=== PATIENT | female | born 1945 | race Caucasian/White ===

== ENCOUNTER 2019-06-06 09:41 | Outpatient (CLI) | payer OTHER, SELFPAY ==
--- NOTE | ~2019-06-06 | XR_ITS ---
EXAMINATION: XR lumbar spine 2-3V DATE: 06/06/2019 11:17 INDICATION: Dorsalis TECHNIQUE: Anteroposterior and lateral views of the lumbar spine, and cone-down lateral view of the l umbosacral junction were obtained. COMPARISON: 03/10/2008 FINDINGS: There are 3 mm of retrolisthesis of L3 on L4. Vertebral body alignment is otherwise normal. There is mild loss of intervertebral disc space height at L3-4. The vertebral body heights are maint ained. Small degenerative osteophytes project from the anterior endplates of multiple vertebral rachna s. There is moderate lower lumbar facet osteoarthritis. Lumbar dextroscoliosis is noted. The bowel ga s pattern is normal. A moderate volume of colonic stool is present. IMPRESSION: 1. Mild to moderate lumbar spondylosis without acute findings. Reviewed, dictated and finalized at location A. [employer]
--- NOTE | ~2019-06-06 | XR_ITS ---
EXAMINATION: XR thoracic spine 3V DATE: 06/06/2019 11:17 INDICATION: Dorsalis unspecified TECHNIQUE: AP, lateral and lateral swimmer's views of the thoracic spine were obtained. COMPARISON: 08/09/2010 FINDINGS: There are bridging osteophytes in the midthoracic spine, consistent with diffuse idiopathic skeletal hyperostosis (DISH). The vertebral body heights are normal. There is no fracture. Mild loss of intervertebral disc space height is seen throughout the thoracic spine. There is mild thoracolumb ar levocurvature. IMPRESSION: 1. Moderate thoracic spondylosis without acute findings or significant interval change. Reviewed, dictated and finalized at location A. E HOP
[2019-06-06 10:32] LABS: Basophils Percent Auto 0.5 % (0.2-1.2); Eosinophils Absolute Auto 0.1 K/mm3 (0-0.3); Eosinophils Percent Auto 1.9 % (0-4.4); Hematocrit 38.2 % (37.0-47.0); Hemoglobin 11.9 g/dL (12.0-15.0); Immature Granulocyte Absolute 0.02 K/mm3 (0.00-0.031); Immature Granulocyte Percent A 0.3 % (0-0.5); Lymphocytes Absolute Auto 1.11 K/mm3 (0.9-3.2); Lymphocytes Percent Auto 17.3 % (18.3-44.2); Mean Corpuscular HGB Conc 31.2 g/dl (32-36); Mean Corpuscular Volume 92.9 fl (80-100); Mean Platelet Volume 10.6 fl (7.4-10.4); Monocytes Absolute Auto 0.6 K/mm3 (0.1-0.6); Monocytes Percent Auto 8.7 % (2.6-8.5); Neutrophils Absolute Auto 4.6 K/mm3 (1.3-6.7); Neutrophils Percent Auto 71.3 % (45.5-73.1); Nucleated Red Blood Cells Perc 0.3 % (0.0-0.2); Platelet Count Result 254 k/mm3 (150-375); Red Blood Count 4.11 M/mm3 (4.2-5.4); Red Cell Distribution Width 13.6 % (11.5-14.5); White Blood Count 6.4 K/mm3 (4.5-10.0)
[2019-06-06 10:59] LABS: Alanine Aminotransferase 22 U/L (4-35); Albumin Level 4.4 g/dL (3.5-5.1); Alkaline Phosphatase 101 U/L (38-126); Aspartate Amino Transferase 48 U/L (14-36); Bilirubin,Total 0.6 mg/dL (0.2-1.3); Blood Urea Nitrogen 26 mg/dL (7-17); Calcium 10.1 mg/dL (8.4-10.2); Carbon Dioxide 25 mmol/L (22-30); Chloride 101 mmol/L (98-107); Cholesterol 154 mg/dL (0-200); Estimated Glomerular Filt Rate > 60; Glucose 103 mg/dL (65-105); HDL Direct 35 mg/dL; Potassium 4.1 mmol/L (3.4-5.0); Sodium 139 mmol/L (137-145); Triglycerides 79 mg/dL (<150)
[2019-06-06 11:10] LABS: LDL Cholesterol Direct 94 mg/dL
[2019-06-06 11:22] LABS: Creatinine Urine 110.1 mg/dL
[2019-06-06 11:27] LABS: MALB Creatinine Ratio 8.9 mg/g (0-30); Microalbumin Urine Random 9.8 mg/L (0-16.7)
[2019-06-06 13:18] LABS: Erythrocyte Sedimentation Rate 56 mm/hr (0-20)
[2019-06-06 16:06] LABS: Vitamin D 25 Hydroxy 32.8 ng/mL
[2019-06-09 20:40] LABS: CRP, High Sensitivity 1.3 mg/L (***)
[2019-06-10 21:14] LABS: Anti Cyclic Citrullinated Pept <16 Units (<20)
== END 2019-06-06 09:42 | disposition home or self-care (01) ==
PROVIDERS: PCP Internal Medicine; Visit Provider Internal Medicine
DX: M54.9 Dorsalgia, unspecified (principal); D89.0 Polyclonal hypergammaglobulinemia; Z79.899 Other long term (current) drug therapy; I10 Essential (primary) hypertension; E78.5 Hyperlipidemia, unspecified; E11.9 Type 2 diabetes mellitus without complications
CPT/HCPCS: 36415; 72072; 72100; 80053; 80061; 82043; 82306; 83036; 85025; 85652; 86038; 86141; 86200

== ENCOUNTER 2019-07-10 11:08 | Outpatient (CLI) | payer OTHER, SELFPAY ==
[2019-07-10 11:29] LABS: Basophils Percent Auto 0.4 % (0.2-1.2); Eosinophils Absolute Auto 0.1 K/mm3 (0-0.3); Eosinophils Percent Auto 2.1 % (0-4.4); Hematocrit 36.8 % (37.0-47.0); Hemoglobin 11.6 g/dL (12.0-15.0); Immature Granulocyte Absolute 0.02 K/mm3 (0.00-0.031); Immature Granulocyte Percent A 0.3 % (0-0.5); Lymphocytes Absolute Auto 1.27 K/mm3 (0.9-3.2); Mean Corpuscular HGB Conc 31.5 g/dl (32-36); Mean Corpuscular Hemoglobin 29.5 pg (26-34); Mean Corpuscular Volume 93.6 fl (80-100); Monocytes Absolute Auto 0.6 K/mm3 (0.1-0.6); Monocytes Percent Auto 8.4 % (2.6-8.5); Neutrophils Absolute Auto 4.7 K/mm3 (1.3-6.7); Neutrophils Percent Auto 69.8 % (45.5-73.1); Platelet Count Result 300 k/mm3 (150-375); Red Blood Count 3.93 M/mm3 (4.2-5.4); Red Cell Distribution Width 13.5 % (11.5-14.5); White Blood Count 6.7 K/mm3 (4.5-10.0)
[2019-07-10 17:09] LABS: Alanine Aminotransferase 18 U/L (4-35); Albumin Level 4.1 g/dL (3.5-5.1); Alkaline Phosphatase 103 U/L (38-126); Aspartate Amino Transferase 40 U/L (14-36); Bilirubin,Total 0.4 mg/dL (0.2-1.3); Blood Urea Nitrogen 25 mg/dL (7-17); Calcium 10.1 mg/dL (8.4-10.2); Carbon Dioxide 29 mmol/L (22-30); Chloride 105 mmol/L (98-107); Estimated Glomerular Filt Rate 48; Glucose 129 mg/dL (65-105); Potassium 3.9 mmol/L (3.4-5.0); Sodium 141 mmol/L (137-145)
[2019-07-10 17:23] LABS: Immunoglobulin A 312 mg/dL (70-400); Immunoglobulin G 2433 mg/dL (700-1600)
[2019-07-10 17:35] LABS: Immunoglobulin M < 25 mg/dL (40-230)
[2019-07-14 03:38] LABS: Albumin 3.7 g/dL (3.8-4.8); Alpha 1 Globulin 0.3 g/dL (0.2-0.3); Alpha 2 Globulin 0.8 g/dL (0.5-0.9); Beta 1 Globulin 0.5 g/dL (0.4-0.6); Gamma Globulin 2.2 g/dL (0.8-1.7)
[2019-07-16 00:45] LABS: Beta-2-Microglobulin 3.42 mg/L (<=2.51)
[2019-07-16 14:19] LABS: Kappa\\Lambda Light Chains 2.91 (0.26-1.65); Lambda Light Chain 21.2 mg/L (5.7-26.3)
== END 2019-07-10 11:09 | disposition home or self-care (01) ==
LOC: ANHLAB 11:13
PROVIDERS: PCP Internal Medicine; Visit Provider Internal Medicine Hematology & Oncology
DX: D72.9 Disorder of white blood cells, unspecified (principal)
CPT/HCPCS: 36415; 80053; 82232; 82784; 83883; 84155; 84165; 85025; 86334

== ENCOUNTER 2019-07-10 11:59 | Outpatient (CLI) | payer OTHER, SELFPAY ==
--- NOTE | ~2019-07-10 | XR_ITS ---
EXAMINATION: BONE SURVEY/METASTATIC SURVEY DATE: 07/10/2019 INDICATION: Plasma cell disorder TECHNIQUE: A skeletal survey was performed including AP views of the chest, abdomen and pelvis; AP an d lateral/lateral swimmers views of the cervical, thoracic and lumbar spine; lateral view of the skul l, and AP and lateral views of the appendicular skeleton excluding the hands and feet. COMPARISON: Thoracic and lumbar spine radiographs dated 06/06/2019 FINDINGS: Small lucencies within sclerotic margins with typical location and appearance for degenerative cystic change at the greater tuberosity of the left humerus. No other suspicious lytic lesions in the axial or appendicular skeleton. There are bridging osteophytes at multiple levels in the spine as well as small enthesophytes at multiple sites of tenderness insertions in the appendicular skeleton, consiste nt with diffuse idiopathic skeletal hyperostosis (DISH). Moderate to severe multilevel bilateral cerv ical facet osteoarthritis. Mild thoracic kyphosis with mild spondylosis. Mild lumbar dextrocurvature with moderate spondylosis. Osteoarthritis at the bilateral hips, mild on the left and moderate on the right. Mild osteoarthritis at the medial compartment of both knees, left greater than right. Lungs a re clear with no focal airspace opacities, pleural effusion or pneumothorax. Cardiomediastinal silhou ette is normal. Normal bowel gas pattern. Atherosclerotic calcifications and phleboliths in the pelvi s. IMPRESSION: 1. Scattered degenerative skeletal changes detailed above. No suspicious lytic bone lesions identifie d. Reviewed, dictated and finalized at location A. [employer] IMPRESSION: 1. Scattered degenerative skeletal changes detailed above. No suspicious lytic bone lesions identified.
== END 2019-07-10 12:00 | disposition home or self-care (01) ==
LOC: ANHIMG 12:03
PROVIDERS: PCP Internal Medicine; Visit Provider Internal Medicine Hematology & Oncology
DX: D72.9 Disorder of white blood cells, unspecified (principal); M89.9 Disorder of bone, unspecified
CPT/HCPCS: 77074

== ENCOUNTER 2019-11-26 09:08 | Outpatient (CLI) | payer OTHER, SELFPAY ==
[2019-11-26 09:49] LABS: Basophils Percent Auto 0.4 % (0.2-1.2); Eosinophils Absolute Auto 0.1 K/mm3 (0-0.3); Eosinophils Percent Auto 1.6 % (0-4.4); Hematocrit 37.3 % (37.0-47.0); Hemoglobin 12.4 g/dL (12.0-15.0); Immature Granulocyte Absolute 0.03 K/mm3 (0.00-0.031); Immature Granulocyte Percent A 0.4 % (0-0.5); Lymphocytes Absolute Auto 1.04 K/mm3 (0.9-3.2); Lymphocytes Percent Auto 15.6 % (18.3-44.2); Mean Corpuscular HGB Conc 33.2 g/dl (32-36); Mean Corpuscular Hemoglobin 29.2 pg (26-34); Mean Corpuscular Volume 87.8 fl (80-100); Mean Platelet Volume 10.2 fl (7.4-10.4); Monocytes Absolute Auto 0.6 K/mm3 (0.1-0.6); Monocytes Percent Auto 9.3 % (2.6-8.5); Neutrophils Absolute Auto 4.9 K/mm3 (1.3-6.7); Neutrophils Percent Auto 72.7 % (45.5-73.1); Platelet Count Result 228 k/mm3 (150-375); Red Blood Count 4.25 M/mm3 (4.2-5.4); Red Cell Distribution Width 13.4 % (11.5-14.5); White Blood Count 6.7 K/mm3 (4.5-10.0)
[2019-11-26 10:05] LABS: Creatinine Urine 63.7 mg/dL
[2019-11-26 10:06] LABS: Hemoglobin A1C 5.8 % (<5.7)
[2019-11-26 10:08] LABS: Alanine Aminotransferase 17 U/L (4-35); Albumin Level 4.2 g/dL (3.5-5.1); Alkaline Phosphatase 90 U/L (38-126); Aspartate Amino Transferase 40 U/L (14-36); Bilirubin,Total 0.5 mg/dL (0.2-1.3); Blood Urea Nitrogen 27 mg/dL (7-17); Carbon Dioxide 22 mmol/L (22-30); Chloride 106 mmol/L (98-107); Estimated Glomerular Filt Rate > 60; Glucose 102 mg/dL (65-105); Potassium 4.4 mmol/L (3.4-5.0); Sodium 137 mmol/L (137-145)
[2019-11-26 10:40] LABS: MALB Creatinine Ratio < 9.4 mg/g (0-30); Microalbumin Urine Random < 6.0 mg/L (0-16.7)
== END 2019-11-26 09:09 | disposition home or self-care (01) ==
LOC: ANHLAB 09:09
PROVIDERS: PCP Internal Medicine; Visit Provider Internal Medicine
DX: R73.01 Impaired fasting glucose (principal)
CPT/HCPCS: 36415; 80053; 82043; 83036; 85025

== ENCOUNTER 2020-02-23 14:02 | Outpatient (CLI) | payer OTHER, SELFPAY ==
[2020-02-23 14:23] LABS: Basophils Percent Auto 0.5 % (0.2-1.2); Eosinophils Absolute Auto 0.1 K/mm3 (0-0.3); Eosinophils Percent Auto 1.7 % (0-4.4); Hematocrit 39.5 % (37.0-47.0); Hemoglobin 12.8 g/dL (12.0-15.0); Immature Granulocyte Absolute 0.03 K/mm3 (0.00-0.031); Immature Granulocyte Percent A 0.4 % (0-0.5); Mean Corpuscular HGB Conc 32.4 g/dl (32-36); Mean Corpuscular Hemoglobin 29.3 pg (26-34); Mean Corpuscular Volume 90.4 fl (80-100); Mean Platelet Volume 10.2 fl (7.4-10.4); Monocytes Absolute Auto 0.8 K/mm3 (0.1-0.6); Neutrophils Absolute Auto 5.3 K/mm3 (1.3-6.7); Neutrophils Percent Auto 71.4 % (45.5-73.1); Platelet Count Result 248 k/mm3 (150-375); Red Blood Count 4.37 M/mm3 (4.2-5.4); Red Cell Distribution Width 13.7 % (11.5-14.5); White Blood Count 7.5 K/mm3 (4.5-10.0)
[2020-02-23 16:46] LABS: Alanine Aminotransferase 21 U/L (4-35); Albumin Level 4.5 g/dL (3.5-5.1); Alkaline Phosphatase 112 U/L (38-126); Anion Gap 10 mmol/L (8-16); Aspartate Amino Transferase 42 U/L (14-36); Bilirubin,Total 0.4 mg/dL (0.2-1.3); Blood Urea Nitrogen 18 mg/dL (7-17); Calcium 10.1 mg/dL (8.4-10.2); Carbon Dioxide 24 mmol/L (22-30); Chloride 106 mmol/L (98-107); Estimated Glomerular Filt Rate > 60; Glucose 122 mg/dL (65-105); Potassium 4.1 mmol/L (3.4-5.0); Sodium 140 mmol/L (137-145)
[2020-02-23 16:53] LABS: Immunoglobulin A 337 mg/dL (70-400); Immunoglobulin G 2679 mg/dL (700-1600)
[2020-02-23 17:45] LABS: Immunoglobulin M < 25 mg/dL (40-230)
[2020-02-25 20:10] LABS: Kappa\\Lambda Light Chains 3.16 (0.26-1.65); Lambda Light Chain 24.3 mg/L (5.7-26.3)
[2020-02-26 22:45] LABS: Albumin 3.8 g/dL (3.8-4.8); Alpha 1 Globulin 0.3 g/dL (0.2-0.3); Alpha 2 Globulin 0.9 g/dL (0.5-0.9); Beta 1 Globulin 0.5 g/dL (0.4-0.6); Gamma Globulin 2.3 g/dL (0.8-1.7); Protein, Total 8.1 g/dL (6.1-8.1)
== END 2020-02-23 14:03 | disposition home or self-care (01) ==
PROVIDERS: PCP Internal Medicine; Visit Provider Internal Medicine Hematology & Oncology
DX: D72.9 Disorder of white blood cells, unspecified (principal)
CPT/HCPCS: 36415; 80053; 82784; 83883; 84155; 84165; 85025; 86334

== ENCOUNTER 2020-07-22 08:17 | Outpatient (CLI) | payer OTHER, SELFPAY ==
--- NOTE | ~2020-07-22 | CT_ITS ---
EXAMINATION: CT diagnostic chest wo con EXAM DATE: 07/22/2020 08:52 INDICATION: R91.1 - Solitary pulmonary nodule . Plasma cell disorder. TECHNIQUE: Spiral CT of the chest without contrast. Axial, coronal and sagittal images were reviewe d. Coronal maximum intensity pixel images of chest reviewed. The dose-length product (DLP) for this examination was 147.39 mGy-cm. The exposure was tailored according to patient size (auto mA exposur e control), and iterative reconstruction (ASIR) was used as additional dose reduction technique. The re is no prior study for comparison. FINDINGS: Small amount of dependent groundglass opacity likely atelectasis. The lungs are otherwise c lear. There is mild emphysema. Multinodular goiter. There are no pleural or pericardial effusions. Tracheobronchial tree is patent. There is no mediastinal, hilar or axillary lymphadenopathy. T here is no pneumothorax. Heart normal in size. There is mild coronary arterial calcification, art erial sclerosis. Dense layering material within the gallbladder, could be small stones or sludge. T here is thoracic spondylosis without osteoblastic or osteolytic lesions identified. IMPRESSION: 1. Subsegmental dependent atelectasis. 2. Mild emphysema. 3. Multinodular goiter. Reviewed, dictated and finalized at location A.
== END 2020-07-22 08:18 | disposition home or self-care (01) ==
PROVIDERS: PCP Internal Medicine; Visit Provider Internal Medicine
DX: R91.1 Solitary pulmonary nodule (principal); J98.11 Atelectasis; J43.9 Emphysema, unspecified; E04.9 Nontoxic goiter, unspecified
CPT/HCPCS: 71250

== ENCOUNTER 2021-01-25 11:27 | Emergency (ER) | payer OTHER, SELFPAY ==
--- NOTE | ~2021-01-25 | CT_ITS ---
EXAMINATION: CT brain wo con DATE: 01/25/2021 13:04 INDICATION: Left-sided headache. Head injury. TECHNIQUE: Computed tomography (CT) of the head was performed without intravenous contrast. The mA wa s adjusted according to patient size. Iterative reconstruction technique was employed. The dose-lengt h product was 605.33 mGy-cm. COMPARISON: Head CT 05/18/2009 FINDINGS: There are scattered areas of low attenuation in the cerebral white matter. There is no intr acranial hemorrhage, acute infarction, or abnormal intracranial mass lesion. The ventricles are yoselin l in size. There is mild mucosal thickening in the paranasal sinuses. There are likely changes of ocu lar lens replacement surgeries. There is left periorbital soft tissue swelling. There is a hematoma i n the left supraorbital region. The mastoid air cells are normal. IMPRESSION: 1. Mild nonspecific cerebral white matter disease, which likely represents chronic small vessel ische jalil disease. Reviewed, dictated and finalized at location A. IMPRESSION: 1. Mild nonspecific cerebral white matter disease, which likely represents online merchant kimberly small vessel ischemic disease.
--- NOTE | ~2021-01-25 | XR_ITS ---
XR hip LT 2V w AP pelvis 01/25/2021 13:11 INDICATION: Left hip pain after fall PROCEDURE: AP pelvis and 2 views left hip COMPARISON: No prior studies for comparison. FINDINGS: Fracture, dislocation or subluxation is not identified. There are mild degenerative changes of the hips. The soft tissues appear within normal limits. No foreign bodies are identified. IMPRESSION: 1: NO ACUTE BONE OR JOINT ABNORMALITY IDENTIFIED. Reviewed, dictated and finalized at location A.
[2021-01-25 11:47] VITALS: BP 140/61; PULSE 74; RESP 16; TEMP 36.2; O2SAT 99
[2021-01-25 12:33] VITALS: BP 139/75; PULSE 64; RESP 16; TEMP 36.8; O2SAT 99
--- NOTE | 2021-01-25 12:50 | ED.FALL ---
HPI - Fall General Chief Complaint: Fall Stated Complaint: fall, Time Seen by Provider: 01/25/21 12:33 History of Present Illness HPI Narrative: Patient presents after ground-level fall. 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 She denies any loss of consciousness reports mild pain around her eye denies any blurred vision change in vision or pain with looking around. She reports mild pain to her left hip but is unable to ambulate without difficulty. She denies any focal numbness or weakness. She denies any use of thinners. She denies any prodrome prior to the event such as chest pain, shortness of breath, dizziness Related Data Home Medications Medication Instructions Recorded Confirmed aspirin 81 mg tablet,delayed 81 mg PO DAILY 03/31/19 08/16/20 release cholecalciferol (vitamin D3) 25 1,000 unit PO DAILY 03/31/19 08/16/20 mcg (1,000 unit) capsule niacin 500 mg tablet,extended 500 mg PO QAM 04/20/20 08/16/20 release Allergies Allergy/AdvReac Type Severity Reaction Status Date / Time No Known Allergies Allergy Mild Verified 01/25/21 12:34 Review of Systems Review of Systems: CONSTITUTIONAL: Denies fever, chills, or sweats. EYES: Denies visual changes, redness, or discharge. ENT: Denies rhinorrhea, congestion, sore throat, or otalgia. CARDIOVASCULAR: Denies chest pain, palpitations, or edema. RESPIRATORY: Denies cough or dyspnea. GASTROINTESTINAL: Denies abdominal pain, nausea, vomiting, or diarrhea. GENITOURINARY: Denies dysuria or hematuria. SKIN: Denies rash or itching. MUSCULOSKELETAL: Denies back pain, joint pain, or myalgia. NEUROLOGIC: Denies headache, numbness, dizziness, or weakness. PSYCHIATRIC: Denies anxiety or depression. All systems reviewed & are unremarkable except as noted in HPI and below PMFSH Social History Social History Smoking status: Former smoker Second hand tobacco smoke exposure: No Smoking end date: 05/07/78 Alcohol intake: never Exam Narrative: GENERAL: Well-appearing, well-nourished, and in no acute distress. HEAD: Normocephalic, hematoma noted around the left orbit small superficial abrasion. EYES: PERRLA and EOMI, conjunctive are clear bilaterally anterior chamber without hypopyon ENT: Nares clear, no rhinorrhea or epistaxis. Mucous membranes moist. NECK: Supple. No masses. No JVD EXTREMITIES: Normal range of motion. No edema. SKIN: Warm, dry, no rash. NEURO: Cranial nerves II through XII are intact patient has 5 out of 5 strength in all extremities with sensation intact to light touch. Patient is ambulatory without difficulty alert and oriented x3. PSYCH: Normal mood and affect. Course Reevaluation(s) Reevaluation #1: Patient is resting comfortably continues to be without vision changes imaging reviewed with patient. Patient comfortable outpatient plan. Date: 01/25/21 Time: 13:31 Vital Signs Vital signs: Vital Signs Temperature 36.2 C L 01/25/21 11:47 Pulse Rate 74 01/25/21 11:47 Respiratory Rate 16 01/25/21 11:47 Blood Pressure 140/61 01/25/21 11:47 Pulse Oximetry 99 01/25/21 11:47 Temperature 36.8 C 01/25/21 12:33 Pulse Rate 75 01/25/21 14:02 Respiratory Rate 15 01/25/21 14:02 Blood Pressure 157/107 H 01/25/21 14:02 Pulse Oximetry 98 01/25/21 14:02 MDM - Fall MDM Narrative Medical decision making narrative: H&P as above, vss, pt looks clinically well, exam hematoma on the left orbit no focal neurological deficits, imaging clinically unremarkable, additional labs/img considered, symptomatic relief available as needed, on reevaluation pt continues to looks clinically well. Suspect mechanical event with soft tissue injury, dns intracranial hemorrhage, fracture, neurovascular compromise. plan to tx/monitor as op w/ pcm f/u findings/plan discussed with pt, pt agree/comfort
[2021-01-25 14:02] VITALS: BP 157/107; PULSE 75; RESP 15; O2SAT 98
== END 2021-01-25 13:55 | disposition home or self-care (01) ==
PROVIDERS: Emergency Provider Emergency Medicine; PCP Internal Medicine
DX: S09.90XA Unspecified injury of head, initial encounter (principal); W01.0XXA Fall on same level from slipping, tripping and stumbling without subsequent striking against object, initial encounter; Z87.891 Personal history of nicotine dependence
CPT/HCPCS: 70450; 73502; 99284

== ENCOUNTER 2021-02-14 09:55 | Outpatient (CLI) | payer OTHER, SELFPAY ==
[2021-02-14 12:17] LABS: Alanine Aminotransferase 26 U/L (4-35); Albumin Level 4.4 g/dL (3.5-5.1); Alkaline Phosphatase 86 U/L (38-126); Anion Gap 6 mmol/L (8-16); Aspartate Amino Transferase 63 U/L (14-36); Bilirubin,Total 0.7 mg/dL (0.2-1.3); Blood Urea Nitrogen 17 mg/dL (7-17); Calcium 10.4 mg/dL (8.4-10.2); Carbon Dioxide 26 mmol/L (22-30); Chloride 106 mmol/L (98-107); Estimated Glomerular Filt Rate > 60; Glucose 105 mg/dL (65-110); Potassium 4.3 mmol/L (3.4-5.0); Sodium 138 mmol/L (137-145)
[2021-02-17 02:33] LABS: Kappa\\Lambda Light Chains 3.27 (0.26-1.65); Lambda Light Chain 19.3 mg/L (5.7-26.3)
[2021-02-17 06:16] LABS: Alpha 1 Globulin 0.3 g/dL (0.2-0.3); Alpha 2 Globulin 0.9 g/dL (0.5-0.9); Beta 1 Globulin 0.5 g/dL (0.4-0.6); Gamma Globulin 2.1 g/dL (0.8-1.7); Protein, Total 8.1 g/dL (6.1-8.1)
== END 2021-02-14 09:56 | disposition home or self-care (01) ==
LOC: ANHLAB 09:58
PROVIDERS: PCP Internal Medicine; Visit Provider Internal Medicine Hematology & Oncology
DX: D72.9 Disorder of white blood cells, unspecified (principal)
CPT/HCPCS: 36415; 80053; 83883; 84155; 84165

== ENCOUNTER 2021-09-06 09:54 | Outpatient (CLI) | payer OTHER, SELFPAY ==
[2021-09-06 10:05] LABS: Basophils Absolute Auto 0.1 K/mm3 (0.0-0.1); Basophils Percent Auto 0.7 % (0.2-1.2); Hematocrit 43.3 % (37.0-47.0); Hemoglobin 13.6 g/dL (12.0-15.0); Immature Granulocyte Absolute 0.02 K/mm3 (0.00-0.031); Immature Granulocyte Percent A 0.3 % (0-0.5); Lymphocytes Absolute Auto 1.24 K/mm3 (0.9-3.2); Lymphocytes Percent Auto 17.6 % (18.3-44.2); Mean Corpuscular HGB Conc 31.4 g/dl (32-36); Mean Corpuscular Hemoglobin 29.5 pg (26-34); Mean Corpuscular Volume 93.9 fl (80-100); Monocytes Absolute Auto 0.6 K/mm3 (0.1-0.6); Monocytes Percent Auto 8.7 % (2.6-8.5); Neutrophils Absolute Auto 5.1 K/mm3 (1.3-6.7); Neutrophils Percent Auto 72.7 % (45.5-73.1); Platelet Count Result 281 k/mm3 (150-375); Red Blood Count 4.61 M/mm3 (4.2-5.4); Red Cell Distribution Width 13.4 % (11.5-14.5)
[2021-09-06 10:09] LABS: Blood Urea Nitrogen 24 mg/dL (8-26); Carbon Dioxide 25 mmol/L (22-30); Chloride 103 mmol/L (98-109); Estimated Glomerular Filt Rate 54; Glucose 100 mg/dL (70-105); Potassium 4.1 mmol/L (3.5-4.9); Sodium 141 mmol/L (138-146)
[2021-09-06 12:44] LABS: Alanine Aminotransferase 15 U/L (4-35); Albumin Level 4.6 g/dL (3.5-5.1); Alkaline Phosphatase 95 U/L (38-126); Anion Gap 11 mmol/L (8-16); Aspartate Amino Transferase 33 U/L (14-36); Bilirubin,Total 0.7 mg/dL (0.2-1.3); Blood Urea Nitrogen 24 mg/dL (7-17); Calcium 9.7 mg/dL (8.4-10.2); Carbon Dioxide 22 mmol/L (22-30); Chloride 104 mmol/L (98-107); Estimated Glomerular Filt Rate 54; Glucose 104 mg/dL (65-110); Sodium 137 mmol/L (137-145)
== END 2021-09-06 09:55 | disposition home or self-care (01) ==
LOC: ANHLAB 09:54
PROVIDERS: PCP Internal Medicine; Visit Provider Internal Medicine Hematology & Oncology
DX: D72.9 Disorder of white blood cells, unspecified (principal)
CPT/HCPCS: 36415; 80047; 80053; 85025

== ENCOUNTER 2022-12-02 09:23 | Emergency (ER) | payer OTHER, SELFPAY ==
[2022-12-02 09:36] VITALS: BP 148/101; PULSE 77; RESP 16; TEMP 37.4; O2SAT 98
--- NOTE | 2022-12-02 09:56 | ED.GENADULT ---
HPI - General Adult General Chief complaint: Urogenital-Female Stated complaint: vaginal issue Source: patient Mode of arrival: ambulatory Limitations: no limitations History of Present Illness HPI narrative: Patient presents for evaluation of vaginal bleeding. Symptom onset yesterday. She wears underwear with incontinence pads due to some urinary dribbling. She noted some blood on her pad yesterday. She states she noted blood again on her pad this morning. She denies any urinary symptoms, low back pain, abdominal pain, fever, chills, dizziness. She takes 81mg ASA daily but states she is not anticoagulated. She is not sexually active. No hx of HPV to her knowledge. Denies any change in bowel pattern. Related Data Allergies Allergy/AdvReac Type Severity Reaction Status Date / Time No Known Allergies Allergy Mild Verified 12/02/22 09:35 Review of Systems Review of Systems: CONSTITUTIONAL: Denies fever, chills, or sweats. EYES: Denies visual changes, redness, or discharge. ENT: Denies rhinorrhea, congestion, sore throat, or otalgia. CARDIOVASCULAR: Denies chest pain, palpitations, or edema. RESPIRATORY: Denies cough or dyspnea. GASTROINTESTINAL: Denies abdominal pain, nausea, vomiting, or diarrhea. GENITOURINARY: Reports vaginal bleeding. Denies dysuria or hematuria. SKIN: Denies rash or itching. MUSCULOSKELETAL: Denies back pain, joint pain, or myalgia. NEUROLOGIC: Denies headache, numbness, dizziness, or weakness. PSYCHIATRIC: Denies anxiety or depression. [facility] Past Medical History Medical History Age-related nuclear cataract COVID DISH (diffuse idiopathic skeletal hyperostosis) DM w/o complication type II Essential (primary) hypertension Hyperlipidemia, unspecified Hypovitaminosis D IFG (impaired fasting glucose) Lung nodule Mild emphysema Osteoarthritis of hip, unspecified Surgical History Surgical History Hx of appendectomy Family History Family History Mother Family history non-contributory Social History Social History Smoking status: Former smoker Second hand tobacco smoke exposure: No Smoking end date: 05/07/78 Alcohol intake: never Substance use: never Substance use type: does not use Exam Narrative: GENERAL: Well-appearing, well-nourished, and in no acute distress. HEAD: Normocephalic, atraumatic. EYES: PERRLA and EOMI. ENT: Nares clear, no rhinorrhea or epistaxis. Mucous membranes moist. Oropharynx without tonsillar hypertrophy exudate or other lesions. Bilateral TMs pearly vinson nonbulging NECK: Supple. No adenopathy or masses. No carotid bruits or JVD CHEST: Clear to auscultation. No respiratory distress. No wheezes rales or rhonchi HEART: Regular rate and rhythm. No murmur heard. Normal peripheral pulses. ABDOMEN: Soft, nontender, nondistended, normal active bowel sounds. EXTREMITIES: Normal range of motion. No edema. GENITAL: There is a small amount of bleeding noted at vaginal orifice. Uterus is prolapsed into vaginal vault SKIN: Warm, dry, no rash. NEURO: No focal deficits. Alert and oriented x3. PSYCH: Normal mood and affect. Course Course Emergency Course: This is a 77-year-old female who presented for evaluation of vaginal bleeding. On physical exam, she has evidence of prolapsed uterus. I contacted on-call OBGYN, Dr Heller. She indicates she will see pt in office and pt should call Sunday for an appointment. She also submitted script for vaginal estrogen. Pt should go to ER for abdominal pain, worsening bleeding or inability to urinate. Pt in agreement with plan of care. Level of Care: Express Care Visit Vital Signs Vital signs: Vital Signs Temperature 37.4 C 12/02/22 09:36 Pulse Rate 77 07/2
== END 2022-12-02 10:36 | disposition home or self-care (01) ==
PROVIDERS: Emergency Provider Nurse Practitioner; PCP Internal Medicine
DX: N81.4 Uterovaginal prolapse, unspecified (principal); Z87.891 Personal history of nicotine dependence; E11.9 Type 2 diabetes mellitus without complications; I10 Essential (primary) hypertension; E78.5 Hyperlipidemia, unspecified; J43.9 Emphysema, unspecified; Z86.16 Personal history of COVID-19
CPT/HCPCS: 99213; G0463

== ENCOUNTER 2023-10-25 11:53 | Outpatient (CLI) | payer OTHER, SELFPAY ==
[2023-10-25 12:39] LABS: Anion Gap 10 mmol/L (4-12); Blood Urea Nitrogen 84 mg/dL (7-17); Calcium 10.6 mg/dL (8.4-10.2); Carbon Dioxide 18 mmol/L (22-30); Chloride 110 mmol/L (98-107); Estimated Glomerular Filt Rate 19; Glucose 101 mg/dL (65-110); Potassium 5.7 mmol/L (3.4-5.0); Sodium 138 mmol/L (137-145)
[2023-10-25 14:11] LABS: Hemoglobin A1C 5.6 % (<5.7)
[2023-10-27 17:24] LABS: Ionized Calcium 5.5 mg/dL (4.7-5.5)
== END 2023-10-25 11:54 | disposition home or self-care (01) ==
PROVIDERS: PCP Family Medicine; Visit Provider Family Medicine
DX: E83.52 Hypercalcemia (principal); R73.01 Impaired fasting glucose; I10 Essential (primary) hypertension; D89.0 Polyclonal hypergammaglobulinemia
CPT/HCPCS: 36415; 80048; 82330; 83036

== ENCOUNTER 2023-11-02 10:58 | Outpatient (CLI) | payer OTHER, SELFPAY ==
[2023-11-02 11:33] LABS: Anion Gap 11 mmol/L (4-12); Blood Urea Nitrogen 79 mg/dL (7-17); Calcium 10.6 mg/dL (8.4-10.2); Carbon Dioxide 14 mmol/L (22-30); Chloride 112 mmol/L (98-107); Estimated Glomerular Filt Rate 18; Glucose 122 mg/dL (65-110); Potassium 5.2 mmol/L (3.4-5.0); Sodium 137 mmol/L (137-145)
== END 2023-11-02 10:59 | disposition home or self-care (01) ==
PROVIDERS: PCP Family Medicine; Visit Provider Family Medicine
DX: D89.0 Polyclonal hypergammaglobulinemia (principal); E83.52 Hypercalcemia; I10 Essential (primary) hypertension; R73.01 Impaired fasting glucose
CPT/HCPCS: 36415; 80048

== ENCOUNTER 2023-11-13 11:38 | Outpatient (CLI) | payer OTHER, SELFPAY ==
--- NOTE | ~2023-11-13 | US_ITS ---
EXAMINATION: US renal BI DATE: 11/13/2023 12:39 INDICATION: Abnormal kidney function studies TECHNIQUE: Multiple ultrasound grayscale images of the kidneys were obtained. COMPARISON: None. FINDINGS: The right kidney measures 12.0 x 5.0 x 6.6 cm. The left kidney measures 11.7 x 4.5 x 6.6 cm. The kidn eys demonstrate normal echogenicity. There is no hydronephrosis in either kidney. No stones identifi ed. The bladder is normal with bilateral ureteral jets visualized on color Doppler. IMPRESSION: 1. Normal kidneys without hydronephrosis. Reviewed, dictated and finalized at location A.
== END 2023-11-13 11:39 | disposition home or self-care (01) ==
PROVIDERS: PCP Family Medicine; Visit Provider Internal Medicine Nephrology
DX: R94.4 Abnormal results of kidney function studies (principal)
CPT/HCPCS: 76775

== ENCOUNTER 2023-11-15 13:35 | Observation (INO) | payer OTHER, SELFPAY ==
[2023-11-15] VITALS (31 sets, daily range): BP systolic 94–111; BP diastolic 62–78; PULSE 56–75; RESP 7–30; TEMP 36.4–36.5; O2SAT 91–100; BMI 25.4
--- NOTE | ~2023-11-15 | CT_ITS ---
EXAMINATION: CT brain wo con DATE: 11/15/2023 15:12 INDICATION: Syncopal episode with fall and head injury TECHNIQUE: Computed tomography (CT) of the head was performed without intravenous contrast. Sagittal and coronal reconstructions were performed. The mA was adjusted according to patient size. Iterative reconstruction technique was employed. The dose-length product was 605.33 mGy-cm. COMPARISON: head CT dated 01/25/21 FINDINGS: No fracture. No acute intracranial hemorrhage, acute infarction or abnormal extra axial fluid collect ion. There is mild scattered white matter hypoattenuation consistent with chronic small vessel ischem ic disease. Ventricles are normal and symmetric. No mass/mass effect. Changes of bilateral intraocula r lens replacement. The orbits, paranasal sinuses and mastoid air cells are normal. Intracranial calc ified cerebral atherosclerosis is noted. IMPRESSION: 1. Normal aging brain. No fracture or acute intracranial process Reviewed, dictated and finalized at location A.
--- NOTE | ~2023-11-15 | XR_ITS ---
XR chest 2V 11/15/2023 14:15 Indication: Syncope. Loss of consciousness. Procedure: 2 view chest Comparison: No prior studies for comparison. Findings: Heart size normal. No focal air space disease, pulmonary edema, pleural effusion or suspect ed pneumothorax. 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 Impression: 1: No acute cardiopulmonary disease. Reviewed, dictated and finalized at location B. Impression: 1: No acute cardiopulmonary disease.
--- NOTE | ~2023-11-15 | CT_ITS ---
EXAMINATION: CT cervical spine wo con DATE: 11/15/2023 15:12 INDICATION: Syncope. Head injury. TECHNIQUE: Computed tomography (CT) of the cervical spine was performed without intravenous contrast. Automated exposure control and iterative reconstruction technique were employed. The dose-length pro duct was 236.63 mGy-cm. COMPARISON: Cervical spine radiographs 06/03/2013 FINDINGS: C1 ring is ununited posteriorly, a normal variant. Bone alignment is normal. Vertebral body heights are normal. Intervertebral disc heights are normal. The following disc levels are specifical ly discussed: C2-C3: There is moderate bilateral uncovertebral joint osteoarthritis. There is mild bilateral facet joint osteoarthritis. There is no neural foraminal stenosis. There is no central canal stenosis. C3-C4: There is mild right and moderate left uncovertebral joint osteoarthritis. There is severe bila teral facet joint osteoarthritis. There is mild bilateral neural foraminal stenosis. There is no cent ral canal stenosis. C4-C5: There is no uncovertebral joint osteoarthritis. There is severe bilateral facet joint osteoart hritis. There is mild left neural foraminal stenosis. There is no central canal stenosis. C5-C6: There is mild bilateral uncovertebral joint osteoarthritis. There is severe bilateral facet rey int osteoarthritis. There is mild left neural foraminal stenosis. There is no central canal stenosis. C6-C7: There is mild bilateral uncovertebral joint osteoarthritis. There is severe bilateral facet rey int osteoarthritis. There is mild bilateral neural foraminal stenosis. There is no central canal sten osis. C7-T1: There is no uncovertebral joint osteoarthritis. There is mild bilateral facet joint osteoarthr itis. There is no neural foraminal stenosis. There is no central canal stenosis. IMPRESSION: 1. No fracture. 2. Mild cervical spondylosis. Reviewed, dictated and finalized at location E.
--- NOTE | 2023-11-15 13:48 | ECG_ITS ---
Test Date: 2023-11-15 13:52:33 Measurements Intervals Mobile Rate: 63 P: 2 TX: 186 QRS: 4 QRSD: 90 T: 15 QT: 355 QTc: 365 Interpretive Statements SINUS RHYTHM VOLTAGE CRITERIA FOR LVH BASELINE ARTIFACT- I, II, III, AVR, AVL, AVF BORDERLINE ECG No previous ECG available for comparison Electronically Signed On 11-15-2023 14:16:38 CDT by Giovanni Cook D.O.
[2023-11-15 14:03] LABS: Basophils Percent Auto 0.6 % (0.2-1.2); Eosinophils Percent Auto 0.1 % (0-4.4); Hematocrit 32.2 % (37.0-47.0); Hemoglobin 10.8 g/dL (12.0-15.0); Immature Granulocyte Absolute 0.03 K/mm3 (0.00-0.031); Immature Granulocyte Percent A 0.4 % (0-0.5); Lymphocytes Absolute Auto 1.05 K/mm3 (0.9-3.2); Lymphocytes Percent Auto 14.5 % (18.3-44.2); Mean Corpuscular HGB Conc 33.5 g/dl (32-36); Mean Corpuscular Hemoglobin 30.8 pg (26-34); Mean Corpuscular Volume 91.7 fl (80-100); Monocytes Absolute Auto 0.7 K/mm3 (0.1-0.6); Monocytes Percent Auto 10.2 % (2.6-8.5); Neutrophils Absolute Auto 5.4 K/mm3 (1.3-6.7); Neutrophils Percent Auto 74.2 % (45.5-73.1); Platelet Count Result 199 k/mm3 (150-375); Red Blood Count 3.51 M/mm3 (4.2-5.4); Red Cell Distribution Width 13.8 % (11.5-14.5); White Blood Count 7.3 K/mm3 (4.5-10.0)
[2023-11-15 14:17] LABS: Alanine Aminotransferase 14 U/L (6-35); Albumin Level 4.1 g/dL (3.5-5.1); Alkaline Phosphatase 83 U/L (38-126); Anion Gap 12 mmol/L (4-12); Aspartate Amino Transferase 39 U/L (14-36); Bilirubin,Total 0.5 mg/dL (0.2-1.3); Blood Urea Nitrogen 36 mg/dL (7-17); Calcium 9.7 mg/dL (8.4-10.2); Carbon Dioxide 19 mmol/L (22-30); Chloride 106 mmol/L (98-107); Estimated CRCL calculation 26 ml/min; Estimated Glomerular Filt Rate 33; Glucose 113 mg/dL (65-110); Potassium 4.6 mmol/L (3.4-5.0); Sodium 137 mmol/L (137-145)
--- NOTE | 2023-11-15 14:50 | ED.SYNCOPE ---
HPI - Syncope General Chief Complaint: Syncope Stated Complaint: syncope Time Seen by Provider: 11/15/23 14:49 History of Present Illness HPI narrative: 78 YEARS OLD WHITE FEMALE LIVES ALONE, CAME TO THE ED BY AMBULANCE FROM HOME BECAUSE SYNCOPE. PATIENT GOT UP TO GO TO THE FRONT DOOR TO CHECK THE TRASH CAN AND THEN WORKUP ON THE FLOOR. WITH PAIN ON THE RIGHT EAR AND RIGHT ELBOW. SHE DENIES ANY OTHER INJURIES. PATIENT DENIES HAVING SIMILAR SYMPTOMS. PATIENT DOES NOT KNOW HOW LONG WAS LAYING DOWN ON THE FLOOR. HISTORY OF DIABETES, HYPERTENSION, HYPERLIPIDEMIA. CURRENTLY PATIENT FEELING BACK TO NORMAL AND DENYING ANY SYMPTOMS. Related Data Home Medications Medication Instructions Recorded Confirmed omega-3 fatty acids-fish oil 360 1 cap PO DAILY 12/06/22 11/02/23 mg-1,200 mg capsule (Fish Oil) Allergies Allergy/AdvReac Type Severity Reaction Status Date / Time No Known Allergies Allergy Mild Verified 11/13/23 10:33 Review of Systems Review of Systems: All systems reviewed & are unremarkable except as noted in HPI and below PMFSH Past Medical History Medical History Age-related nuclear cataract COVID DISH (diffuse idiopathic skeletal hyperostosis) DM w/o complication type II Essential (primary) hypertension Hyperlipidemia, unspecified Hypovitaminosis D IFG (impaired fasting glucose) Lung nodule Mild emphysema Osteoarthritis of hip, unspecified Surgical History Surgical History Hx of appendectomy Social History Social History Smoking status: Former smoker Second hand tobacco smoke exposure: Yes Smoking end date: 05/07/78 Alcohol intake: never Substance use: never Substance use type: does not use Do You Feel Safe in your Home?: Yes Lack of Transportation: No Lack of Food: Never True Current Housing: I Have Housing Concerned About Future Housing: No Difficulty Paying Gas/Electric Bills: No Difficulty Paying for Meds: No Currently Unemployed: No Education: High School Diploma/GED Difficulty w/ Childcare or Family Care: No Living arrangements: alone Occupation/Education: retired 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 MUSCULOSKELETAL: NORMAL RANGE OF MOTION, NONTENDER BACK NEUROLOGIC: ALERT AND ORIENTED ?3, J[address] COURT LIAISON IS NORMAL TESTED, NO GROSS MOTOR DEFICIT Course Vital Signs Vital signs: Vital Signs Temperature 36.4 C 11/15/23 13:45 Pulse Rate 66 11/15/23 13:45 Respiratory Rate 16 11/15/23 13:45 Blood Pressure 109/78 11/15/23 13:45 Pulse Oximetry 97 11/15/23 13:45 Oxygen Delivery Room Air 11/15/23 13:45 Temperature 36.4 C 11/15/23 13:45 Pulse Rate 65 11/15/23 17:18 Respiratory Rate 28 H 11/15/23 17:18 Blood Pressure 101/64 11/15/23 17:16 Pulse Oximetry 97 11/15/23 17:18 Oxygen Delivery Room Air 11/15/23 13:45 MDM - Syncope MDM Narrative Medical decision making narrative: DIFFERENTIAL DIAGNOSIS INCLUDE ORTHOSTATIC HYPOTENSION, CA
[2023-11-15 16:44] LABS: Troponin I < 0.012 ng/mL (0.000-0.034)
--- NOTE | 2023-11-15 19:45 | PM.IMHP ---
H&P: HPI History of Present Illness Date/Time: 11/15/23 19:45 Chief Complaint: syncope Narrative: This is a 78-year-old female with past medical history significant for dyslipidemia, hypertension. Patient comes to the emergency room after having episode of syncope patient woke up all the floor she had been feeling dizzy the day before, denies any fevers, rigors, chills, nausea, vomiting, diarrhea. was told that she had renal disease in recent lab work by primary care physician. Here in emergency room preliminary workup was significant for urinalysis with WBCs present. patient has been admitted for further evaluation management and treatment. XR chest 2V 11/15/2023 14:15 Indication: Syncope. Loss of consciousness. Procedure: 2 view chest Comparison: No prior studies for comparison. Findings: Heart size normal. No focal air space disease, pulmonary edema, pleural effusion or suspected pneumothorax. 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 Impression: 1: No acute cardiopulmonary disease. EXAMINATION: CT brain wo con DATE: 11/15/2023 15:12 INDICATION: Syncopal episode with fall and head injury TECHNIQUE: Computed tomography (CT) of the head was performed without intravenous contrast. Sagittal and coronal reconstructions were performed. The mA was adjusted according to patient size. Iterative reconstruction technique was employed. The dose-length product was 605.33 mGy-cm. COMPARISON: head CT dated 01/25/21 FINDINGS: No fracture. No acute intracranial hemorrhage, acute infarction or abnormal extra axial fluid collection. There is mild scattered white matter hypoattenuation consistent with chronic small vessel ischemic disease. Ventricles are normal and symmetric. No mass/mass effect. Changes of bilateral intraocular lens replacement. The orbits, paranasal sinuses and mastoid air cells are normal. Intracranial calcified cerebral atherosclerosis is noted. IMPRESSION: 1. Normal aging brain. No fracture or acute intracranial process EXAMINATION: CT cervical spine wo con DATE: 11/15/2023 15:12 INDICATION: Syncope. Head injury. TECHNIQUE: Computed tomography (CT) of the cervical spine was performed without intravenous contrast. Automated exposure control and iterative reconstruction technique were employed. The dose-length product was 236.63 mGy-cm. COMPARISON: Cervical spine radiographs 06/03/2013 FINDINGS: C1 ring is ununited posteriorly, a normal variant. Bone alignment is normal. Vertebral body heights are normal. Intervertebral disc heights are normal. The following disc levels are specifically discussed: C2-C3: There is moderate bilateral uncovertebral joint osteoarthritis. There is mild bilateral facet joint osteoarthritis. There is no neural foraminal stenosis. There is no central canal stenosis. C3-C4: There is mild right and moderate left uncovertebral joint osteoarthritis. There is severe bilateral facet joint osteoarthritis. There is mild bilateral neural foraminal stenosis. There is no central canal stenosis. C4-C5: There is no uncovertebral joint osteoarthritis. There is severe bilateral facet joint osteoarthritis. There is mild left neural foraminal stenosis. There is no central canal stenosis. C5-C6: There is mild bilateral uncovertebral joint osteoarthritis. There is severe bilateral facet joint osteoarthritis. There is mild left neural foraminal stenosis. There is no central canal stenosis. C6-C7: There is mild bilateral uncovertebral joint osteoarthritis. There is severe bilateral facet joint osteoarthritis. There is mild bilateral neural foraminal stenosis. There is no central canal stenosis. C7-T1: There is no uncovertebral joint osteoarthritis. There is mild bilateral facet joint osteoarthritis. There is no neural foraminal stenosis. There is no central canal stenosis. IMPRESSION: 1. No fracture. 2. Mild cervical spondylosis. Review of Systems Review of Sy
--- NOTE | 2023-11-15 21:44 | ADMGEN ---
This patient, Madelyn Ricketts, was admitted to [facility] Room 306-01. Patient/family oriented to hospital policies and general routines including ID bracelet, bed and alarms, visiting hours, pain management, procedures, bathroom and other care routines, personal items, smoking policy, room service/diet, and visiting hours. Information on how to activate the Rapid Response Team has been discussed. Patient/Family are encouraged to report perceived risks to care and to ask questions if they do not understand what they are told or what they should do.
[2023-11-15] MEDS: FLUTICASONE PROPIONATE 0.05% NA SPR 16 GM BTL (*BKC) 1 SPRAY NASAL (22:03)
[2023-11-16] VITALS (12 sets, daily range): BP systolic 92–118; BP diastolic 37–66; PULSE 51–72; RESP 13–18; TEMP 36.1–36.8; O2SAT 95–100
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
[2023-11-16 08:39] LABS: Basophils Percent Auto 0.4 % (0.2-1.2); Eosinophils Percent Auto 0.2 % (0-4.4); Hematocrit 31.8 % (37.0-47.0); Hemoglobin 10.1 g/dL (12.0-15.0); Immature Granulocyte Absolute 0.03 K/mm3 (0.00-0.031); Immature Granulocyte Percent A 0.6 % (0-0.5); Lymphocytes Absolute Auto 0.91 K/mm3 (0.9-3.2); Lymphocytes Percent Auto 17.4 % (18.3-44.2); Mean Corpuscular HGB Conc 31.8 g/dl (32-36); Mean Corpuscular Hemoglobin 30.1 pg (26-34); Mean Corpuscular Volume 94.6 fl (80-100); Mean Platelet Volume 10.4 fl (7.4-10.4); Monocytes Absolute Auto 0.6 K/mm3 (0.1-0.6); Monocytes Percent Auto 10.9 % (2.6-8.5); Neutrophils Absolute Auto 3.7 K/mm3 (1.3-6.7); Neutrophils Percent Auto 70.5 % (45.5-73.1); Platelet Count Result 188 k/mm3 (150-375); Red Blood Count 3.36 M/mm3 (4.2-5.4); Red Cell Distribution Width 14.1 % (11.5-14.5); White Blood Count 5.2 K/mm3 (4.5-10.0)
[2023-11-16] MEDS: ATORVASTATIN 40 MG TABLET 80 MG PO (08:41)
[2023-11-16] MEDS: SODIUM CHLORIDE 0.9% IV 1,000 ML 100 ML IV CONT ×2 (08:41→18:02)
[2023-11-16] MEDS: OMEGA 3 POLYUNSAT FATTY ACIDS 1 GM CAP PO (08:42)
[2023-11-16 08:54] LABS: Alanine Aminotransferase 12 U/L (6-35); Albumin Level 3.9 g/dL (3.5-5.1); Alkaline Phosphatase 67 U/L (38-126); Anion Gap 7 mmol/L (4-12); Aspartate Amino Transferase 38 U/L (14-36); Bilirubin,Total 0.6 mg/dL (0.2-1.3); Blood Urea Nitrogen 32 mg/dL (7-17); Calcium 9.8 mg/dL (8.4-10.2); Carbon Dioxide 23 mmol/L (22-30); Chloride 108 mmol/L (98-107); Estimated CRCL calculation 32 ml/min; Estimated Glomerular Filt Rate 43; Glucose 92 mg/dL (65-110); Potassium 5.3 mmol/L (3.4-5.0); Sodium 138 mmol/L (137-145)
[2023-11-16] MEDS: FLUTICASONE PROPIONATE 0.05% NA SPR 16 GM BTL (*BKC) 1 SPRAY NASAL (18:05)
[2023-11-17] VITALS (8 sets, daily range): BP systolic 114–133; BP diastolic 67–88; PULSE 56–73; RESP 13–16; TEMP 35.9–36.4; O2SAT 95–98
--- NOTE | 2023-11-17 03:47 | PC.NURSE ---
patient refusing IV fluids and cussing at staff, stating that this can be done in the morning . this RN educated patient about IV fluids, the doctor's orders, and her infection. patient states this is the 3rd bag this is ridiculous take this off right now this should have been done this morning and refuses any further education.
[2023-11-17] MEDS: OMEGA 3 POLYUNSAT FATTY ACIDS 1 GM CAP PO (08:33)
[2023-11-17] MEDS: ENOXAPARIN 40 MG/0.4 ML SYRINGE SUB-Q (08:33)
[2023-11-17 08:47] LABS: Basophils Percent Auto 0.5 % (0.2-1.2); Eosinophils Percent Auto 0.2 % (0-4.4); Hematocrit 31.3 % (37.0-47.0); Hemoglobin 9.7 g/dL (12.0-15.0); Immature Granulocyte Absolute 0.02 K/mm3 (0.00-0.031); Immature Granulocyte Percent A 0.3 % (0-0.5); Lymphocytes Absolute Auto 0.84 K/mm3 (0.9-3.2); Lymphocytes Percent Auto 14.5 % (18.3-44.2); Mean Corpuscular Hemoglobin 29.7 pg (26-34); Mean Corpuscular Volume 95.7 fl (80-100); Mean Platelet Volume 10.5 fl (7.4-10.4); Monocytes Absolute Auto 0.5 K/mm3 (0.1-0.6); Monocytes Percent Auto 8.7 % (2.6-8.5); Neutrophils Absolute Auto 4.4 K/mm3 (1.3-6.7); Neutrophils Percent Auto 75.8 % (45.5-73.1); Platelet Count Result 172 k/mm3 (150-375); Red Blood Count 3.27 M/mm3 (4.2-5.4); Red Cell Distribution Width 13.8 % (11.5-14.5); White Blood Count 5.8 K/mm3 (4.5-10.0)
[2023-11-17 09:38] LABS: Alanine Aminotransferase 11 U/L (6-35); Albumin Level 3.8 g/dL (3.5-5.1); Alkaline Phosphatase 59 U/L (38-126); Anion Gap 10 mmol/L (4-12); Aspartate Amino Transferase 37 U/L (14-36); Bilirubin,Total 0.6 mg/dL (0.2-1.3); Blood Urea Nitrogen 28 mg/dL (7-17); Calcium 9.6 mg/dL (8.4-10.2); Carbon Dioxide 18 mmol/L (22-30); Chloride 111 mmol/L (98-107); Estimated CRCL calculation 42 ml/min; Estimated Glomerular Filt Rate 60; Glucose 91 mg/dL (65-110); Potassium 4.8 mmol/L (3.4-5.0); Sodium 139 mmol/L (137-145)
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
== END 2023-11-17 12:50 | disposition home or self-care (01) ==
LOC: ANHED 15:55 → ANH3MEDSUR 11-16 06:43
PROVIDERS: Emergency Medicine; Admitting Provider Family Medicine; Emergency Provider Emergency Medicine; PCP Family Medicine; Visit Provider Student in an Organized Health Care Education/Training Program
DX: N17.9 Acute kidney failure, unspecified (principal); N39.0 Urinary tract infection, site not specified; E87.5 Hyperkalemia; R55 Syncope and collapse; I10 Essential (primary) hypertension; E78.5 Hyperlipidemia, unspecified; E55.9 Vitamin D deficiency, unspecified; J43.9 Emphysema, unspecified; M48.10 Ankylosing hyperostosis [Forestier], site unspecified; E11.9 Type 2 diabetes mellitus without complications; Z87.891 Personal history of nicotine dependence
CPT/HCPCS: 36415; 70450; 71046; 72125; 80053; 84484; 85025; 87040; 93005; 96361; 96365; 96372; 97161; 97165; 99285; A9270; G0378; J0696; J1650; J7030

== ENCOUNTER 2023-11-29 10:15 | Emergency (ER) | payer OTHER, SELFPAY ==
--- NOTE | ~2023-11-29 | XR_ITS ---
XR foot LT min 3V 11/29/2023 10:46 Indication: Left foot pain and swelling Procedure: 4 views left foot Comparison: No prior studies for comparison. Findings: Moderate diffuse soft tissue swelling. Prominent degenerative calcaneal enthesophytes. Ther e is moderate polyarticular osteoarthritis. No acute fracture, subluxation or dislocation. No foreign bodies. Impression: 1: No acute bone or joint abnormality abnormality. Reviewed, dictated and finalized at location B. Impression: 1: No acute bone or joint abnormality abnormality.
--- NOTE | 2023-11-29 10:25 | ED.LOWEXIN ---
HPI - Extremity Injury (Lower) General Chief Complaint: Extremity Injury, Lower Stated Complaint: Left Foot Pain Time Seen by Provider: 11/29/23 10:25 Source: patient, RN notes reviewed and old records reviewed Mode of arrival: ambulatory Limitations: no limitations History of Present Illness HPI Narrative: 78-year-old female presents to the [facility] with complaints of left dorsal foot redness, swelling since Sunday night. States that she did fall. Denies hitting head. Denies any loss of consciousness. Denies any neck or back pain. Continues to have swelling to the left dorsal foot. Currently denies any pain with palpation. Positive pedal pulse. Sensation intact in all 5 toes the capillary refill under 2 seconds. Was concern for possibly an infection due to not wearing shoes on a regular basis. Onset (ago): day(s) (3) Related Data Home Medications Medication Instructions Recorded Confirmed omega-3 fatty acids-fish oil 360 1 cap PO DAILY 12/06/22 11/29/23 mg-1,200 mg capsule (Fish Oil) atorvastatin 80 mg tablet 80 mg PO DAILY 11/15/23 11/29/23 lisinopril 40 mg tablet 40 mg PO DAILY 11/15/23 11/29/23 metoprolol succinate 100 mg 100 mg PO DAILY 11/15/23 11/29/23 tablet,extended release 24 hr meloxicam 15 mg tablet 15 mg PO DAILY 11/29/23 11/29/23 Allergies Allergy/AdvReac Type Severity Reaction Status Date / Time No Known Allergies Allergy Mild Verified 11/29/23 10:25 Review of Systems Review of Systems: All systems reviewed & are unremarkable except as noted in HPI and below Constitutional: Constitutional: Reports no additional constitutional complaints Eyes: Eyes: Reports no additional eye complaints ENT: Reports system reviewed and no additional complaints, except as documented Cardiovascular: Cardiovascular: Reports no additional cardiovascular complaints, Denies chest pain and Denies dyspnea Respiratory: Respiratory: Reports no additional respiratory complaints, Denies chest congestion, Denies cough and Denies dyspnea Gastrointestinal: Gastrointestinal: Reports no additional gastrointestinal complaints, Denies abdominal pain, Denies nausea and Denies vomiting Musculoskeletal: Musculoskeletal: Reports as per HPI Integumentary/Breasts: Skin/Breast: Reports system reviewed and no additional complaints, except as docu Neurologic: Reports system reviewed and no additional complaints, except as documented Psychiatric: Psychiatric: Reports no additional psychiatric complaints Allergic/Immunologic: Allergic/Immunologic: Reports no additional allergic/immunologic complaints [facility] Past Medical History Medical History Age-related nuclear cataract COVID DISH (diffuse idiopathic skeletal hyperostosis) 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 complication type II Essential (primary) hypertension Hyperlipidemia, unspecified Hypovitaminosis D IFG (impaired fasting glucose) Lung nodule Mild emphysema Osteoarthritis of hip, unspecified Surgical History Surgical History Hx of appendectomy Social History Social History Smoking status: Never smoker Second hand tobacco smoke exposure: Yes Smoking end date: 05/07/78 Alcohol intake: never Substance use: never Substance use type: does not use Do You Feel Safe in your Home?: Yes Lack of Transportation: No Lack of Food: Never True Current Housing: I Have Housing Concerned About Future Housing: No Difficulty Paying Gas/Electric Bills: No Difficulty Paying for Meds: No Currently Unemployed: No Education: High School Diploma/GED Difficulty w/ Childcare or Family Care: No Living arrangements: alone Occupation/Education: retired 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
[2023-11-29 10:28] VITALS: BP 134/89; PULSE 96; RESP 16; TEMP 36.3; O2SAT 98
== END 2023-11-29 11:35 | disposition home or self-care (01) ==
PROVIDERS: Emergency Provider Nurse Practitioner; PCP Family Medicine
DX: R22.42 Localized swelling, mass and lump, left lower limb (principal); E11.9 Type 2 diabetes mellitus without complications; I10 Essential (primary) hypertension; E78.5 Hyperlipidemia, unspecified; J43.9 Emphysema, unspecified; Z87.891 Personal history of nicotine dependence; Z86.16 Personal history of COVID-19
CPT/HCPCS: 73630; 99213; G0463

== ENCOUNTER 2024-08-12 08:25 | Outpatient (CLI) | payer OTHER, SELFPAY ==
--- OUTSIDE RECORDS SUMMARY | 2024-08-12 08:39 | XMS_ITS | Referral Summary ---
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 Gender Identity Not on file Sexual Orientation Not on file Last Filed Vital Signs Vital Sign Reading Time Taken Comments Blood Pressure 146/72 12/24/2023 5:06 PM CDT Pulse 71 12/24/2023 5:06 PM CDT Temperature 36.9 C (98.4 F) 12/24/2023 10:48 AM CDT Respiratory Rate 18 12/24/2023 5:06 PM CDT Oxygen Saturation 99% 12/24/2023 5:06 PM CDT Inhaled Oxygen Concentration - - Weight 70.2 kg (154 lb 12.2 oz) 024 10:48 AM CDT Height 167.6 cm (5' 6 ) 12/24/2023 10:4 8 AM CDT Body Mass Index 24.98 12/24/2023 10:48 AM CDT Plan of Treatment Not on file Insurance [facility] Care Teams Political Worker Relationship Specialty Start Date End Date Unknown, Notinfile PCP - General 12/24/23
--- OUTSIDE RECORDS SUMMARY | 2024-08-12 08:39 | XMS_ITS | Clinical Summary ---
Author Organization [facility] Address [address] [place] [id number] Care Team Providers Care Cook Starch Name Role Phone Unavailable Primary Care Provider Unavailabl e Social History Tobacco Use Types Packs/Day Years Used Date Smoking Tobacco: Never Assessed Comments Unknown Sex and Gender Information Value Date Recorded Sex Assigned at Not on file Legal Sex Female 1:31 PM CDT Gender Identity Not on file Sexual Orientation Not on file Plan of Treatment Health Maintenance Due Date Last Done Comments DTaP, Tdap and Td Vaccines ( 1 - Tdap) 01/09/1963 Zoster Vaccines (1 of 2) 01/09/1994 Annual Medicare Wellness Visit 01/09/2009 Dexa Scan (General) 01/09/2009 Pneumococcal Vaccine: 65+ Ye ars (1 of 1 - PCV) 01/09/2009 RSV Immunization or 60+ Years (1 - 1-dose 75+ series) 01/09/2019 COVID-19 Vaccine ( - 2023-2 5 season) 2024 PHQ-2 (Physician [place]) 05/07/2024 Meningococcal B Vaccine Aged Out No l onger eligible based on patient's age to complete this topic Meningococcal Vaccine Aged Out No wilton melonie eligible based on patient's age to complete this topic RSV Immunizations Under 20 Months Aged Out No longer eligible based on patient's age to complete this topic Insurance [employer]
--- OUTSIDE RECORDS SUMMARY | 2024-08-12 08:39 | XMS_ITS | Clinical Summary ---
Author Organization [facility] Address [address] [place] [address] Care Team Providers Care Local Delivery Truck Driver Name Role Phone Doc Jarvis MD Primary Care Provider [phone] Allergies No known active allergies Medications atorvastatin (LIPITOR) 80 mg tablet 05/22/2019 Active lisinopriL (PRINIVIL) 40 mg tablet 05/22/2019 Active metoprolol succinate (TOPROL XL) 100 mg Extended Release 24 hour tablet 05/26/2019 Active aspirin (ECOTRIN EC) 81 mg Tablet, Delayed Release (E.C.) Take 81 mg by mouth daily. Active omega-3 fatty acids-fish oil 300-1,000 mg Capsule Take by mouth daily. 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 Family History Medical History Relation Name Comments Cancer Father Relation Name Status Comments Father Mother Son 1 Alive Son 2 Alive Social History Tobacco Use Types Packs/Day Years Used Date Smoking Tobacco: Former Cigarettes 0.5 1 0 07/10/1963 - 07/09/1964 Smokeless Tobacco: Never Alcohol Use Standard Drinks/Week Comments Never 0 (1 standard drink = 0.6 oz pur e alcohol) Comments No Sex and Gender Information Value Date Recorded Sex Assigned at Not on file 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 Gender Identity Not on file Sexual Orientation Not on file Last Filed Vital Signs Vital Sign Reading Time Taken Comments Blood Pressure 119/73 09/06/2021 10:17 AM CDT Pulse 61 09/06/2021 10:17 AM CDT Temperature 36.1 C (97 F) 09/06/2021 10:17 AM CDT Respiratory Rate - - Oxygen Saturation 98% 09/06/2021 10: 17 AM CDT Inhaled Oxygen Concentration - - Weight 74.7 kg (164 lb 11.2 oz) 022 10:17 AM CDT Height 167.6 cm (5' 6 ) 09/06/2021 10:1 7 AM CDT Body Mass Index 26.58 09/06/2021 10:17 AM CDT Plan of Treatment Health Maintenance Due Date Last Done Comments DTAP/TDAP/TD VACCINES (1 - Tdap) 01/09/1963 PNEUMOCOCCAL VACCINE 50+ YEARS (1 of 1 - PCV) 01/09/19 94 ZOSTER VACCINE (1 of 2) 01/09/1994 OSTEOPOROSIS SCREENING 01/09/2009 RSV VACCINE (60+ or ) (1 - 1-dose 75+ series) 01/09/2019 INFLUENZA VACCINE (#1) 2023 Insurance M[employer] Care Teams Local Delivery Truck Driver Relationship Specialty Start Date End Date Doc Jarvis MD [address] [place] [address] PCP - General Internal Medicine 06/11/19
--- OUTSIDE RECORDS SUMMARY | 2024-08-12 08:39 | XMS_ITS | Clinical Summary ---
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 Medical History Medical History Date Comments Hypertension Hypercholesteremia Hypercalcemia Hypogammaglobulinemia Social History Tobacco Use Types Packs/Day Years [...] on file 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 Gender Identity Not on file Sexual Orientation Not on file Obstetrics History Last Filed Vital Signs Vital Sign Reading [...] 12/24/2023 10:48 AM CDT Plan of Treatment Health Maintenance Due Date Last Done Comments Depression Screening 1944 Fall Risk Assessment 1945 Osteoporosis Screening-Bone Density Scan 1944 DTaP/Tdap/Td Vaccine (1 - Tdap) 01/09/1955 Hepatitis B Screening 01/09/1962 Well Visit 65+ 01/09/2009 Pneumococcal vaccine 65+ (2 of 2 - PCV) 12/09/2023 12/08/2022 Covid-19 Vaccine ( - 2023-2 5 season) 2024 02/07/2023, 10/10/2021, 04/07/2021, Additional history exists Influenza Vaccine (#1) 2024 Zoster Vaccine Completed 10/25/2023, 12/08/2022 Insurance Member Subscriber Plan / Payer (Ef fective 2019-Present) Name:Madelyn Ricketts Relation to Subscriber:Self Name:Madelyn Ricketts Payer ID:[id number] ([facility]) Type:MEDICARE RISK OTHER Address: [place] [id number] Member Subscriber Plan / Payer (Ef fective 2016-Present) Name:Madelyn Ricketts Relation to Subscriber:Self Name:Jamarcus Madelyn Payer ID:[id number] ([facility]) Type:MEDICARE RISK OTHER Address: [place] [id number] Care Teams Campus Chaplain Relationship Specialty Start Date End Date Unknown, Notinfile PCP - General 12/24/23
[2024-08-12 09:06] LABS: Hemoglobin 13.4 g/dL (12.0-15.0); Mean Corpuscular HGB Conc 31.9 g/dl (32-36); Mean Corpuscular Hemoglobin 28.6 pg (26-34); Mean Corpuscular Volume 89.7 fl (80-100); Mean Platelet Volume 9.8 fl (7.4-10.4); Platelet Count Result 279 k/mm3 (150-375); Red Blood Count 4.68 M/mm3 (4.2-5.4); Red Cell Distribution Width 14.2 % (11.5-14.5); White Blood Count 6.9 K/mm3 (4.5-10.0)
[2024-08-12 14:55] LABS: Alanine Aminotransferase 17 U/L (6-35); Albumin Level 4.6 g/dL (3.5-5.1); Alkaline Phosphatase 115 U/L (38-126); Anion Gap 12 mmol/L (4-12); Aspartate Amino Transferase 43 U/L (14-36); Bilirubin,Total 1.1 mg/dL (0.2-1.3); Blood Urea Nitrogen 26 mg/dL (7-17); Calcium 10.1 mg/dL (8.4-10.2); Carbon Dioxide 23 mmol/L (22-30); Chloride 105 mmol/L (98-107); Cholesterol 199 mg/dL (0-200); Estimated Glomerular Filt Rate 46; Glucose 106 mg/dL (65-110); HDL Direct 43 mg/dL; Potassium 4.4 mmol/L (3.4-5.0); Sodium 140 mmol/L (137-145); Triglycerides 97 mg/dL (<150)
[2024-08-12 15:07] LABS: LDL Cholesterol Direct 112 mg/dL
[2024-08-12 16:20] LABS: Vitamin D 25 Hydroxy 39.5 ng/mL
== END 2024-08-12 08:26 | disposition home or self-care (01) ==
PROVIDERS: PCP Family Medicine; Visit Provider Family Medicine
DX: I12.9 Hypertensive chronic kidney disease with stage 1 through stage 4 chronic kidney disease, or unspecified chronic kidney disease (principal); N18.9 Chronic kidney disease, unspecified; E55.9 Vitamin D deficiency, unspecified; E78.5 Hyperlipidemia, unspecified; R73.01 Impaired fasting glucose; R55 Syncope and collapse
CPT/HCPCS: 36415; 80053; 80061; 82306; 82607; 83036; 85027

== ENCOUNTER 2024-08-29 07:27 | Outpatient (CLI) | payer OTHER, SELFPAY ==
--- OUTSIDE RECORDS SUMMARY | 2024-08-29 07:30 | XMS_ITS | Clinical Summary ---
Author Organization [facility] Address [address] [place] [address] Care Team Providers Care Medical Services Assistant Name Role Phone Unavailable Primary Care Provider [...] Td Vaccines ( 1 - Tdap) 01/09/1963 Pneumococcal Vaccine: 50+ Ye ars (1 of 1 - PCV) 01/09/1994 Zoster Vaccines (1 of 2) 01/09/1994 Annual Medicare Wellness Visit 01/09/2009 Dexa Scan (General) 01/09/2009 RSV Immunization or 60+ Years (1 - 1-dose 75+ series) 01/09/2019 COVID-19 Vaccine ( - 2023-2 5 season) 2024 PHQ-2 (Physician [place]) 05/07/2024 Meningococcal B Vaccine Aged Out No l onger eligible based on patient's age to complete this topic Meningococcal Vaccine Aged Out No wilton melonie eligible based on patient's age to complete this topic RSV Immunizations Under 20 Months Aged Out No longer eligible based on patient's age to complete this topic Insurance [employer]
--- OUTSIDE RECORDS SUMMARY | 2024-08-29 07:30 | XMS_ITS | Clinical Summary ---
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
--- OUTSIDE RECORDS SUMMARY | 2024-08-29 07:30 | XMS_ITS | Clinical Summary ---
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
--- OUTSIDE RECORDS SUMMARY | 2024-08-29 07:30 | XMS_ITS | Referral Summary ---
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
--- NOTE | 2024-08-29 07:36 | ECHO_ITS ---
Patient Info Name: Madelyn Ricketts Age: 79 years : 1945 Gender: Female Ht: 64 in Wt: 165 lbs BSA: 1.86 m2 HR: 92 bpm BP: 130 / 80 mmHg Technical Quality: Good Exam Date: 08/29/2024 8:08 AM Exam Location: Echo Lab Patient Status: Outpatient Admit Date: 08/29/2024 Staff Ordering Physician: Shivam Rico MD Salesperson Flowers: Mel Lerma RDCS Attending Provider: Shivam Rico MD Referring Physician: Jacky SMITH; Exam Type: CA echo doppler color flow Study Info Indications R01.1 - Cardiac murmur, unspecified Complete two-dimensional, color flow and Doppler transthoracic echocardiogram is performed. Summary 1. Complete two-dimensional, color flow and Doppler transthoracic echocardiogram is performed. 2. Left ventricular chamber dimension is normal. 3. Left ventricular systolic function is normal, estimated at 65-70%. 4. There is mild concentric increased left ventricular wall thickness. 5. The left ventricular diastolic function is grade I diastolic dysfunction. 6. E/e' 10 is mildly elevated. 7. There is moderate aortic valve sclerosis. 8. The mitral valve has mildly calcified annulus. 9. There is trace tricuspid valve regurgitation. 10. No pulmonary hypertension, estimated pulmonary arterial systolic pressure is 17 mmHg. Left Ventricle E/e' 10 is mildly elevated. Left ventricular chamber dimension is normal. Left ventricular systolic function is normal, estimated at 65-70%. There is mild concentric increased left ventricular wall thickness. The left ventricular diastolic function is grade I diastolic dysfunction. Right Ventricle Right ventricular systolic function is normal and with normal TAPSE 1.9 cm. Right ventricular chamber dimension is normal. Left Atria Left atrial chamber dimension is normal. Right Atria Right atrial chamber dimension is normal. Aortic Valve The aortic valve is trileaflet. There is moderate aortic valve sclerosis. There is no aortic valve stenosis. There is no aortic valve regurgitation. Pulmonic Valve There is no pulmonic regurgitation. Mitral Valve The mitral valve has mildly calcified annulus. There is no mitral valve stenosis. There is no mitral valve regurgitation. Tricuspid Valve There is trace tricuspid valve regurgitation. No pulmonary hypertension, estimated pulmonary arterial systolic pressure is 17 mmHg. Pericardium/Pleural There is no pericardial effusion. Inferior Vena Cava Normal inferior vena cava with >50% collapse upon inspiration consistent with normal right atrial pressure, 5 mmHg. Aorta The aortic root size at the sinus of Valsalva is normal. Left Ventricular Outflow Tract Name Value Normal LVOT 2D LVOT Diameter 2.0 cm LVOT Doppler LVOT Peak Gradient 12 mmHg LVOT Mean Gradient 7 mmHg LVOT VTI 35 cm LVOT VTI/AV VTI Ratio 1.3 LVOT Stroke Volume 117 ml LVOT CO 24.8 l/min LVOT CI 13.3 l/min/m2 Pulmonic Valve Name Value Normal PV Doppler PV Peak Gradient 3 mmHg Mitral Valve Name Value Normal MV Doppler MV Decel [place] 272 cm/s2 MV PHT 70 ms MV Area (PHT) 3.1 cm2 4.0-5.0 MV Diastolic Function MV E Peak Velocity 66 cm/s MV A Peak Velocity 118 cm/s MV E/A 0.6 MV Decel Time 241 ms MV Annular TDI MV E/e' (Septal) 12.4 <=8.0 MV E/e' (Lateral) 9.2 <=8.0 MV E/e' (Average) 10.8 Tricuspid Valve Name Value Normal TV Regurgitation Doppler TR Peak Velocity 170 cm/s TR Peak Gradient 12 mmHg Estimated PAP/RSVP RA Pressure 5 mmHg <=5 PA Systolic Pressure 17 mmHg <36 RV Systolic Pressure 17 mmHg <36 Aorta Name Value Normal Ascending Aorta Ao Root Diameter (MM) 3.1 cm Ao Root Diam Index (MM) 1.7 cm/m2 Aortic Valve Name Value Normal AV Doppler AV Peak Velocity 153 cm/s AV Peak Gradient 9 mmHg AV Mean Gradient 7 mmHg AV VTI 28 cm AV Area (Cont Eq VTI) 4.1 cm2 >=3.0 AV Area (Cont Eq [place]odan) 3.7 cm2 AV Regurgitation 2D LVOT Area 3.3 cm2 Ventricles Name Value Normal LV Dimensions 2D/MM IVS Diastolic Thickness (2D) 1.2 cm 0.6-1.0 LVID Diastole (2D) 3.9 cm 3.8-5.2 LVIW Diastolic Thickness (2D) 1.3 cm 0.6-0.9 LVID Systole (2D) 2.3 cm 2.2-3.5 LVOT Diameter 2.0 cm LV Mass (2D Cubed) 173.17 g 67.00-162.00 LV Mass Index (2D Cubed) 93 g/m2 43-95 Relative Wall Thickness (2D) 0.67 LV Fractional Shortening/Ejection Fraction 2D/MM LV Fractional Shortening (2D) 40 % 27-45 LV EF (2D Teicholz) 71 % 54-74 LV Diastolic Volume (4C MOD) 64 ml LV EF (4C MOD) 70 % LV Diastolic Volume (2C MOD) 69 ml LV EF (2C MOD) 68 % LV Diastolic Volume (BP MOD) 69 ml 46-106 LV Diastolic Volume Index (BP MOD) 37 ml/m2 29-61 LV Systolic Volume (BP MOD) 21 ml 14-42 LV Systolic Volume Index (BP MOD) 11 ml/m2 8-24 LV EF (BP MOD) 70 % 54-74 LV Diastolic Length (4C) 8.5 cm LV Systolic Length (4C) 6.9 cm LV Stroke Volume (4C MOD) 45 ml RV Dimensions 2D/MM RVID Diastole (2D) 3.1 cm 2.5-3.5 Atria Name Value Normal LA Dimensions LA Dimension (MM) 4.0 cm 2.7-3.8 LA Volume (4C A-L) 45 ml RA Dimensions RA Area (4C) 12.4 cm2 <=18.0 Report Signatures
== END 2024-08-29 07:28 | disposition home or self-care (01) ==
PROVIDERS: PCP Family Medicine; Visit Provider Family Medicine
DX: R93.1 Abnormal findings on diagnostic imaging of heart and coronary circulation (principal); R01.1 Cardiac murmur, unspecified; I10 Essential (primary) hypertension
CPT/HCPCS: 93306

== ENCOUNTER 2024-09-02 08:05 | Outpatient (CLI) | payer OTHER, SELFPAY ==
--- NOTE | ~2024-09-02 | US_ITS ---
Limited Abdominal Sonogram: Real-time sonographic imaging of the right upper quadrant was performed. Clinical History: Liver enzyme levels Findings: The liver appears normal with no evidence of mass lesion or bile duct dilatation. Main por dong vein demonstrates normal direction of flow. The gallbladder is well distended, and demonstrates l ayering small gallstones. The common bile duct measures 8 mm. The visualized pancreas, aorta, and IV C are unremarkable. Right kidney measures 11.5 cm in length, and is mildly hyperechoic. No hydronephr osis. Impression: Cholelithiasis. Echogenic right kidney suggest chronic medical renal disease. Reviewed, dictated and finalized at location M. Impression: Cholelithiasis. Echogenic right kidney suggest chronic medical renal disease.
--- OUTSIDE RECORDS SUMMARY | 2024-09-02 08:14 | XMS_ITS | Referral Summary ---
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
--- OUTSIDE RECORDS SUMMARY | 2024-09-02 08:14 | XMS_ITS | Clinical Summary ---
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
--- OUTSIDE RECORDS SUMMARY | 2024-09-02 08:14 | XMS_ITS | Clinical Summary ---
Author Organization [facility] Address [address] [place] [address] Care Team Providers Care Fuel Island Attendant Name Role Phone Unavailable Primary Care Provider [...] - 2023-2 5 season) 2024 PHQ-2 (Physician [place]) 05/07/2024 Meningococcal B Vaccine Aged Out No l onger eligible based on patient's age to complete this topic Meningococcal Vaccine Aged Out No wilton melonie eligible based on patient's age to complete this topic RSV Immunizations Under 20 Months Aged Out No longer eligible based on patient's age to complete this topic Insurance [employer]
--- OUTSIDE RECORDS SUMMARY | 2024-09-02 08:14 | XMS_ITS | Clinical Summary ---
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
== END 2024-09-02 08:06 | disposition home or self-care (01) ==
PROVIDERS: PCP Family Medicine; Visit Provider Family Medicine
DX: K80.20 Calculus of gallbladder without cholecystitis without obstruction (principal); R93.421 Abnormal radiologic findings on diagnostic imaging of right kidney; R74.01 Elevation of levels of liver transaminase levels
CPT/HCPCS: 76705

== ENCOUNTER 2025-01-01 12:49 | Emergency (ER) | payer OTHER, SELFPAY ==
--- NOTE | ~2025-01-01 | US_ITS ---
EXAMINATION: US pelvic complete, 01/01/2025 13:00 CDT HISTORY: post menopausal bleeding. Comparison: None Technique: Henderson-scale and color Doppler images were obtained. Findings: Uterus: Uterus anteverted 8.5 x 5 x 7.4 cm. . Endometrium measures 4.5 cm with a heterogeneous appearance but no areas of abnormal flow. Right Ovary:Right ovary 2.3 x 1.5 x 3 cm, no adnexal mass, normal flow. Left Ovary: Left ovary 2.4 x 2.4 x 2.5 cm, no adnexal mass, normal flow. Free Fluid: None Impression: Findings are concerning for endometrial neoplasm Reviewed, dictated and finalized at location A. Impression: Findings are concerning for endometrial neoplasm
[2025-01-01 12:55] VITALS: BP 149/91; PULSE 106; RESP 18; TEMP 36.7; O2SAT 97
--- OUTSIDE RECORDS SUMMARY | 2025-01-01 12:58 | XMS_ITS | Clinical Summary ---
Author Organization [facility] Address [address] [place] [address] Care Team Providers Care Airborne Sensor Specialist Name Role Phone Unavailable Primary Care Provider [...] - 2023-2 5 season) 2024 PHQ-2 (Physician [place]) 05/07/2024 Meningococcal B Vaccine Aged Out No l onger eligible based on patient's age to complete this topic Meningococcal Vaccine Aged Out No wilton melonie eligible based on patient's age to complete this topic RSV Immunizations Under 20 Months Aged Out No longer eligible based on patient's age to complete this topic Insurance [employer]
--- OUTSIDE RECORDS SUMMARY | 2025-01-01 12:58 | XMS_ITS | Clinical Summary ---
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 Gender Identity Not on file Sexual Orientation [...] 10:48 AM CDT Height 167.6 cm (5' 6) 12/24/2023 10:4 8 AM CDT Body Mass [...] 04/07/2021, Additional history exists Influenza Vaccine (#1) 2025 Zoster Vaccine Completed 10/25/2023, 12/08/2022 Insurance Member Subscriber Plan / Payer (Ef fective 2019-Present) Name:Madelyn Ricketts Relation to Subscriber:Self Name:Madelyn Ricketts Payer ID:[id number] ([facility]) Type:MEDICARE RISK OTHER Address: [place] [id number] Member Subscriber Plan / Payer (Ef fective 2016-Present) Name:Madelyn Ricketts Relation to Subscriber:Self Name:Jamarcus Madelyn Payer ID:[id number] ([facility]) Type:MEDICARE RISK OTHER Address: [place] [phone] Care Teams Window Air Conditioner Installer Relationship Specialty Start Date End Date Unknown, Notinfile PCP - General 12/24/23
--- OUTSIDE RECORDS SUMMARY | 2025-01-01 12:58 | XMS_ITS | Clinical Summary ---
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 Gender Identity Not on file Sexual Orientation [...] 10:17 AM CDT Height 167.6 cm (5' 6) 09/06/2021 10:1 7 AM CDT Body Mass Index 26.58 09/06/2021 10:17 AM CDT Plan of Treatment Health Maintenance Due Date Last Done Comments DTAP/TDAP/TD VACCINES (1 - Tdap) 01/09/1963 PNEUMOCOCCAL VACCINE 50+ YEARS (1 of 1 - PCV) 01/09/19 94 ZOSTER VACCINE (1 of 2) 01/09/1994 OSTEOPOROSIS SCREENING 01/09/2009 RSV VACCINE (60+ or ) (1 - 1-dose 75+ series) 01/09/2019 INFLUENZA VACCINE (#1) 2024 Insurance [employer] Care Teams Rn Observation Relationship Specialty Start Date End Date Doc Jarvis MD [address] [place] [address] PCP - General Internal Medicine 06/11/19
--- OUTSIDE RECORDS SUMMARY | 2025-01-01 13:20 | XMS_ITS | Clinical Summary ---
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
--- OUTSIDE RECORDS SUMMARY | 2025-01-01 13:20 | XMS_ITS | Clinical Summary ---
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
--- OUTSIDE RECORDS SUMMARY | 2025-01-01 13:20 | XMS_ITS | Clinical Summary ---
Author Organization [facility] Address [address] [place] [address] Care Team Providers Care Die Set Up Worker Name Role Phone Unavailable Primary Care Provider [...] - 2023-2 5 season) 2024 PHQ-2 (Physician [place]) 05/07/2024 Meningococcal B Vaccine Aged Out No l onger eligible based on patient's age to complete this topic Meningococcal Vaccine Aged Out No wilton melonie eligible based on patient's age to complete this topic RSV Immunizations Under 20 Months Aged Out No longer eligible based on patient's age to complete this topic Insurance [employer]
[2025-01-01 13:59] LABS: Hematocrit 36.6 % (37.0-47.0); Hemoglobin 11.5 g/dL (12.0-15.0); Immature Granulocyte Percent A 0.4 % (0-0.5); Lymphocytes Absolute Auto 1.13 K/mm3 (0.9-3.2); Mean Corpuscular HGB Conc 31.4 g/dl (32-36); Mean Corpuscular Hemoglobin 27.4 pg (26-34); Mean Corpuscular Volume 87.1 fl (80-100); Nucleated Red Blood Cells Absolute Auto 0.000 K/mm3 (0.0-0.012); Nucleated Red Blood Cells Perc 0.0 % (0.0-0.2); Platelet Count Result 248 k/mm3 (150-375); Red Blood Count 4.20 M/mm3 (4.2-5.4); White Blood Count 7.4 K/mm3 (4.5-10.0)
[2025-01-01 14:12] LABS: Alanine Aminotransferase 18 U/L (6-35); Albumin Level 3.9 g/dL (3.5-5.1); Alkaline Phosphatase 94 U/L (38-126); Anion Gap 6 mmol/L (4-12); Aspartate Amino Transferase 36 U/L (14-36); Bilirubin,Total 0.5 mg/dL (0.2-1.3); Blood Urea Nitrogen 19 mg/dL (7-17); Calcium 10.3 mg/dL (8.4-10.2); Carbon Dioxide 25 mmol/L (22-30); Chloride 107 mmol/L (98-107); Estimated CRCL calculation 39 ml/min; Estimated Glomerular Filt Rate 57; Glucose 105 mg/dL (65-110); INR 1.0; Potassium 4.5 mmol/L (3.4-5.0); Prothrombin Time 13.2 Seconds (11.1-14.7); Sodium 138 mmol/L (137-145); Total Protein 8.2 g/dL (6.3-8.2)
--- NOTE | 2025-01-01 15:32 | PC.NURSE ---
Provider spoke with patient giving her the options of calling the OBGYN at [facility] for a follow up appointment and consult. Patient states she was unsure of if she wanted to go through this at her ago. Dr Ren verbalized to the patient that this is the first step in the process to help the patient. Patient verbalized understanding of instructions. Patient given information for patient to call for follow up appointment
--- NOTE | 2025-01-01 15:35 | ED.FEMALEGU ---
HPI - Female Genitourinary General Chief complaint: Vaginal Bleeding Stated complaint: vaginal bleeding Time Seen by Provider: 01/01/25 12:59 Source: patient Mode of arrival: ambulatory Limitations: no limitations History of Present Illness HPI Narrative: Eighty year history hyperlipidemia to the ER with a complaint of having vaginal bleeding since last few days. Patient states that something was protruding out of her vagina and forpast 1 or 2 days , she noticed to have vaginal bleeding. She denies any abdominal pain ,not any anticogulants. MD elicited complaint: vaginal bleeding Onset (ago): day(s) (2) Location of symptoms: vaginal Severity: moderate Consistency: constant Vaginal discharge: none Vaginal bleeding: moderate Exacerbating factors: none Relieving factors: none Related Data Allergies Allergy/AdvReac Type Severity Reaction Status Date / Time No Known Allergies Allergy Mild Verified 01/01/25 12:59 Review of Systems Review of Systems: All systems reviewed & are unremarkable except as noted in HPI and below Constitutional: Constitutional: Reports no additional constitutional complaints Eyes: Eyes: Reports no additional eye complaints ENT: Reports system reviewed and no additional complaints, except as documented Cardiovascular: Cardiovascular: Reports no additional cardiovascular complaints Respiratory: Respiratory: Reports no additional respiratory complaints Gastrointestinal: Gastrointestinal: Reports no additional gastrointestinal complaints Genitourinary: Genitourinary: Reports as per HPI Musculoskeletal: Musculoskeletal: Reports no additional musculoskeletal complaints [facility] Past Medical History Medical History Age-related nuclear cataract COVID DISH (diffuse idiopathic skeletal hyperostosis) DM w/o complication type II Essential (primary) hypertension Hyperlipidemia, unspecified Hypovitaminosis D IFG (impaired fasting glucose) Lung nodule Mild emphysema Osteoarthritis of hip, unspecified Surgical History Surgical History Hx of appendectomy Social History Social History Smoking status: Never smoker Second hand tobacco smoke exposure: Yes Smoking end date: 05/07/78 Alcohol intake: never Substance use: never Substance use type: does not use Do You Feel Safe in your Home?: Yes Lack of Transportation: No Lack of Food: Never True Current Housing: I Have Housing Concerned About Future Housing: No Difficulty Paying Gas/Electric Bills: No Difficulty Paying for Meds: No Currently Unemployed: No Education: High School Diploma/GED Difficulty w/ Childcare or Family Care: No Living arrangements: alone Occupation/Education: retired 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 HEAD: Normocephalic, atraumatic. EYES: PERRLA and EOMI. ENT: Nares clear, no rhinorrhea or epistaxis. Mucous membranes moist. NECK: Supple. CHEST: Clear to auscultation. No respiratory distress. HEART: Regular rate and rhythm. No murmur heard. Normal peripheral pulses. ABDOMEN: Soft, nontender, nondistended, normal active bowel sounds. EXTREMITIES: Normal range of motion. No edema. Normal external genitalia .moderate amount of dark blood in the vagina . SKIN: Warm, dry, no rash. NEURO: No focal deficits. Alert and oriented x3. PSYCH: Normal mood and affect. Course Course Emergency Course: Notified pt about her lab and US findings, discussed with DR. Hooker at [facility] .will follow up in the office. Vital Signs Vital signs: Vital Signs Temperature 36.7 C 01/01/25 12:55 Pulse Rate 106 H 01/01/25 12:55 Respiratory Rate 18 01/01/25 12:55 Blood Pressure 149/91 H 01/01/25 12:55 Pulse Oximetry 97 01/01/25 12:55 Oxygen Delivery Room Air 01/01/25 12:55 Temperature 36.7 C 01/01/25 12:55 Pulse Rate 106 H 01/01/25 12:55 Respiratory Rate 18 01/01/25 12:55 Blood Pressure 149/91 H 01/01/25 12:55 Pulse Oximetry 97 01/01/25 12:55 Oxygen Delivery Room Air 01/01/25 12:55 MDM - Female Genitourinary Differential Diagnosis Differential diagnosis: Likely urinary tract infection, cystitis and dysmenorrhea Medical Records Attestation: I reviewed the patient's medical records. Lab Data Attestation: I reviewed the patient's lab results. 01/01/25 13:53 01/01/25 13:53 Labs: Lab Results 08/28/25 Range/Units 13:53 WBC 7.4 (4.5-10.0) K/mm3 RBC 4.20 (4.2-5.4) M/mm3 Hgb 11.5 L (12.0-15.0) g/dL Hct 36.6 L (37.0-47.0) % MCV 87.1 (80-100) fl MCH 27.4 (26-34) pg MCHC 31.4 L (32-36) g/dl RDW 14.1 (11.5-14.5) % Plt Count 248 (150-375) k/mm3 MPV 9.3 (7.4-10.4) fl Immature Gran % (Auto) 0.4 (0-0.5) % Neut % (Auto) 75.0 H (45.5-73.1) % Lymph % (Auto) 15.2 L (18.3-44.2) % Overton % (Auto) 8.7 H (2.6-8.5) % Eos % (Auto) 0.0 (0-4.4) % Baso % (Auto) 0.7 (0.2-1.2) % Lymph # (Auto) 1.13 (0.9-3.2) K/mm3 Overton # (Auto) 0.7 H (0.1-0.6) K/mm3 Eos # (Auto) 0.0 (0-0.3) K/mm3 Baso # (Auto) 0.1 (0.0-0.1) K/mm3 Abs Immat Gran (auto) 0.03 (0.00-0.031) K/mm3 Absolute Neuts (auto) 5.6 (1.3-6.7) K/mm3 Absolute Nucleated RBC 0.000 (0.0-0.012) K/mm3 Nucleated RBC % 0.0 (0.0-0.2) % PT 13.2 (11.1-14.7) Seconds INR 1.0 Sodium 138 (137-145) mmol/L Potassium 4.5 (3.4-5.0) mmol/L Chloride 107 (98-107) mmol/L Carbon Dioxide 25 (22-30) mmol/L Anion Gap 6 (4-12) mmol/L BUN 19 H (7-17) mg/dL Creatinine 0.95 (0.7-1.0) mg/dL Estim Creat Clear Calc 39 ml/min Estimated GFR 57 L (59 - ) Glucose 105 (65-110) mg/dL Calcium 10.3 H (8.4-10.2) mg/dL Total Bilirubin 0.5 (0.2-1.3) mg/dL AST 36 (14-36) U/L ALT 18 (6-35) U/L Alkaline Phosphatase 94 (38-126) U/L Total Protein 8.2 (6.3-8.2) g/dL Albumin 3.9 (3.5-5.1) g/dL Imaging Data Radiologist's impression: ITS Impressions Pelvis Ultrasound 01/01/25 14:05 Impression: Findings are concerning for endometrial neoplasm Discharge Plan Discharge Clinical Impression: Post-menopausal bleeding Patient Disposition: Home Condition: Stable Instructions: Abnormal (Dysfunctional) Uterine Bleeding (ED) Additional Instructions: Please Contact invoice checker Oncology at [place] for an appointment , [phone] Patient Language: Togolese Prescriptions: No Action (DME) blood pressure monitor Kit See Rx Instructions .Route Qty: 1 0RF Rx Instructions: As directed atorvastatin 80 mg tablet 80 mg PO DAILY Qty: 90 1RF Follow-up/Referrals: Shivam Rico MD [Primary Care Provider, [facility]] Time of Disposition: 15:37
== END 2025-01-01 15:53 | disposition home or self-care (01) ==
PROVIDERS: Emergency Provider Family Medicine; PCP Family Medicine
DX: N95.0 Postmenopausal bleeding (principal); I10 Essential (primary) hypertension; E78.5 Hyperlipidemia, unspecified; E11.9 Type 2 diabetes mellitus without complications; E55.9 Vitamin D deficiency, unspecified; J43.9 Emphysema, unspecified; M16.9 Osteoarthritis of hip, unspecified; H25.10 Age-related nuclear cataract, unspecified eye; Z86.16 Personal history of COVID-19; Z87.891 Personal history of nicotine dependence; Z79.899 Other long term (current) drug therapy
CPT/HCPCS: 36415; 76856; 80053; 85025; 85610; 86304; 99284